=== PATIENT | female | born 1980 | race Asian ===

== ENCOUNTER 2019-05-16 12:05 | Emergency (ER) | payer OTHER ==
[~2019-05-16] VITALS: Ht 160 cm; Wt 44.5 kg
[~2019-05-16 12:05] MED LIST: CIPR-261 PO; NORG7TAB5 PO
[2019-05-16 12:45] VITALS: BP_SYST 105
--- NOTE | 2019-05-16 12:52 | NUR ---
TRIPatient triaged and placed in waiting room. VSS and patient appears in no acute distress at this time. Accompanied by self, awaiting available bed, and MD notified of need for MSE.
--- NOTE | 2019-05-16 15:07 | NUR ---
[facility] chair 4
--- NOTE | 2019-05-16 15:40 | NUR ---
PATIENT PRESENTS TO THE ER WITH BRIEF EPISODE OF BLINDNESS TO RIGHT EYE LAST NIGHT AT 2300; THIS WAS PRECEDED BY NAUSEA AND VOMITING WITH HEADACHE OVER THE PREVIOUS 5 DAYS; NO TRAUMA, NO OTHER REMARKABLE S/S; PATIENT STATES HER VISION WAS RESTORED GRADUALLY OVER THE NEXT SEVERAL HOURS
[2019-05-16] MEDS ORDERED: ACETAMINOPHEN 500 MG TABLET PO ONE (16:15)
[2019-05-16 17:43] VITALS: BP_SYST 95
--- NOTE | 2019-05-16 17:45 | NUR ---
REASSESSMENT BY ERMD; ACI GIVEN AND PATIENT INDICATED FULL UNDERSTANDING; DISCHARGED AMBULATORY WITH ; IMPROVED; VISION INTACT
== END 2019-05-16 17:45 | disposition home or self-care (01) ==
LOC: SED 12:05
DX: H53.121 Transient visual loss, right eye (principal); R51 Headache; Z88.2 Allergy status to sulfonamides
CPT/HCPCS: 70450-TC; 81025; 99284

== ENCOUNTER 2020-09-25 21:23 | Emergency (ER) | payer OTHER ==
[~2020-09-25] VITALS: Ht 160 cm; Wt 44.9 kg
[2020-09-25 21:32] VITALS: BP_SYST 134
[2020-09-25] MEDS ORDERED: NAPR-686 PO ×2 (22:58)
[2020-09-25] MEDS ORDERED: IBUPROFEN 600 MG TABLET PO ONE (23:30)
[2020-09-25] MEDS ORDERED: NAPROXEN 250 MG TABLET PO ONE (23:30)
[2020-09-25] MEDS ORDERED: IBUPROFEN 600 MG TABLET ONE (23:32)
[2020-09-25] MEDS ORDERED: predniSONE 20 MG TABLET ONE (23:35)
[2020-09-25] MEDS ORDERED: PRED20TA PO (23:41)
[2020-09-25] MEDS ORDERED: predniSONE 20 MG TABLET PO ONE (23:45)
[2020-09-25 23:53] VITALS: BP_SYST 122
== END 2020-09-25 23:53 | disposition home or self-care (01) ==
LOC: SED 21:23
DX: S90.31XA Contusion of right foot, initial encounter (principal); E03.9 Hypothyroidism, unspecified; Z88.2 Allergy status to sulfonamides; Z88.8 Allergy status to other drugs, medicaments and biological substances; Z79.899 Other long term (current) drug therapy; W23.0XXA Caught, crushed, jammed, or pinched between moving objects, initial encounter; Y93.89 Activity, other specified; Y92.89 Other specified places as the place of occurrence of the external cause; Y99.8 Other external cause status
CPT/HCPCS: 73620; 99283; J7512

== ENCOUNTER 2022-02-07 05:55 | Emergency (ER) | payer OTHER ==
[~2022-02-07] VITALS: Ht 160 cm; Wt 46.3 kg
[~2022-02-07 05:55] MED LIST changes: +PRED20TA PO
[2022-02-07 06:05] VITALS: BP_SYST 115
--- NOTE | 2022-02-07 06:07 | NUR ---
PT FROM HOME WITH C/O OF ABD CRAMPING SINCE TUESDAY AFTER TAKING SERTRALINE FOR PMDD. PT STATES SHE WOKE UP TODAY WITH VOMITING AND DIARRHEA. YESTERDAY SHE REPORTS POLYURIA. DENIES BLOOD IN THE URINE AND EMESIS. VSS. SAFETY PRECAUTIONS IN PLACE AND CONNECTED TO MONITOR.
--- NOTE | 2022-02-07 06:10 | NUR ---
Patient to ER bed 03 to gown for evaluation. Side rails up. Report given to Lexus DAWKINS.
--- NOTE | 2022-02-07 06:12 | NUR ---
Dr. Akhtar at bedside with patient for evaluation.
[2022-02-07 06:14] VITALS: BP_SYST 115
[2022-02-07] MEDS ORDERED: NACL 0.9% 1,000 ML IV ONE (06:15)
[2022-02-07] MEDS ORDERED: ONDANSETRON HCL 4 MG/2 ML VIAL IVP ONE ×2 (06:15→08:00)
--- NOTE | 2022-02-07 06:40 | NUR ---
IV ACCESS PLACED G20 LT AC IVP ZOFRAN 4 MG GIVEN AND N/S 1L BOLUS RUNNING.
--- NOTE | 2022-02-07 07:10 | NUR ---
REPORT RECEIVED FROM JUANCHO COLON. PATIENT LYING ON GURNEY IN NO ACUTE DISTRESS. FAMILY AT THE BEDSIDE. CARE TO BE PROVIDED ORDERED.
[2022-02-07] MEDS ORDERED: ALPRAZolam 0.25 MG TABLET PO ONE (07:15)
[2022-02-07 07:47] LABS: BASOPHILS # (AUTO) 0.1 K/uL (0.0-0.2); BASOPHILS % (AUTO) 0.6 % (0.0-2.0); EOSINOPHILS # (AUTO) 0.1 K/uL (0.0-0.4); EOSINOPHILS % (AUTO) 0.8 % (0.0-4.0); HEMATOCRIT 36.6 % (36-48); HEMOGLOBIN 12.6 g/dL (12.0-16.0); LYMPHOCYTES # (AUTO) 1.9 K/uL (1.0-5.5); LYMPHOCYTES % (AUTO) 20.5 % (20.5-51.5); MEAN CORPUSCULAR HEMOGLOBIN 30 pg (27-31); MEAN CORPUSCULAR HGB CONC 35 % (32-36); MEAN CORPUSCULAR VOLUME 86 fL (79.0-98.0); MONOCYTES # (AUTO) 0.6 K/uL (0.0-1.0); MONOCYTES % (AUTO) 6.1 % (1.7-9.3); NEUTROPHILS # (AUTO) 6.6 K/uL (1.8-7.7); PLATELET COUNT (AUTO) 206 K/uL (130-430); RED BLOOD CELL COUNT(AUTO) 4.27 MIL/uL (4.2-6.2); RED CELL DISTRIBUTION WIDTH 13.3 % (9.0-15.0); WHITE BLOOD COUNT (AUTO) 9.2 K/uL (4.8-10.8)
[2022-02-07 08:06] LABS: ANION GAP 12 (5-15); CHLORIDE 105 mmol/L (98-107); CREATININE 0.82 mg/dL (0.55-1.30); GLUCOSE 98 mg/dL (70-99); UREA NITROGEN, BLOOD 11 mg/dL (8-21)
[2022-02-07 08:10] LABS: ALANINE AMINOTRANSFERASE 14 U/L (12-78); ALBUMIN 3.5 g/dL (3.4-4.8); AMYLASE 59 U/L (0-100); ASPARTATE AMINOTRANSFERASE 14 U/L (10-37); LACTATE DEHYDROGENASE 122 U/L (81-234); LIPASE 119 U/L (73-393); TOTAL BILIRUBIN 0.4 mg/dL (0.0-1.0)
[2022-02-07 08:19] LABS: C-REACTIVE PROTEIN QUANT < 0.2 mg/dL (0-0.5); GFR AFRICAN AMERICAN 99 mL/min (>90)
[2022-02-07 08:52] LABS: ACETONE, SERUM NEGATIVE (NEGATIVE)
[2022-02-07] MEDS ORDERED: ALPR0.5T PO (09:34)
[2022-02-07] MEDS ORDERED: ONDA-8 TL (09:34)
--- NOTE | 2022-02-07 09:55 | NUR ---
Patient given written and verbal discharge instructions and verbalizes understanding. ER DR. ISIDRA PRICE discussed with patient the results and treatment provided. Patient in stable condition. ID arm band removed. IV catheter removed intact and dressing applied, no active bleeding. Rx oF XANAX AND ZOFRAN given. Patient educated on pain management and to follow up with PMD. Pain Scale 0/10. Opportunity for questions provided and answered. Medication side effect fact sheet provided.
[2022-02-07 10:32] LABS: BILIRUBIN,URINE NEGATIVE (NEGATIVE); BLOOD, URINE NEGATIVE (NEGATIVE); CLARITY/URINE SL CLOUDY (CLEAR); COLOR,URINE YELLOW (YELLOW); GLUCOSE,URINE NEGATIVE (NEGATIVE); KETONES,URINE 1+ (NEGATIVE); LEUKOCYTE ESTERASE ,URINE NEGATIVE (NEGATIVE); NITRITE, URINE NEGATIVE (NEGATIVE); PH,URINE 7.5 (5.0-8.0); PROTEIN URINE NEGATIVE (NEGATIVE); UROBILINOGEN,URINE 0.2 (0.2-1.0)
== END 2022-02-07 09:55 | disposition home or self-care (01) ==
LOC: SED 05:55
DX: R10.84 Generalized abdominal pain (principal); T43.225A Adverse effect of selective serotonin reuptake inhibitors, initial encounter; R19.7 Diarrhea, unspecified; R11.10 Vomiting, unspecified; Z88.2 Allergy status to sulfonamides; Z79.899 Other long term (current) drug therapy
CPT/HCPCS: 99284; 74176; 96374; 96361; 80053; 82009; 82150; 84703; 83615; 83690; 85025; 86140; 36415; 76376; 96376; 81025; 83605; 81003; J2405; J7030

== ENCOUNTER 2022-03-01 15:24 | Emergency (ER) | payer OTHER ==
[~2022-03-01] VITALS: Ht 160 cm; Wt 43.1 kg
[~2022-03-01 15:24] MED LIST changes: +ALPR0.5T PO; +ONDA-8 TL
--- NOTE | 2022-03-01 16:35 | NUR ---
Patient arrived to ED 4. Was at hospital three weeks ago but was on zoloft. Patient said that she was on pre-menstrual syndrome. Patient discharged after that. Patient had three doses of zoloft and started having diarrhea. Patient was told by other ER Dr. about potential side effects of serotonin syndrome. Patient having headaches and went to primary care DrArden today. Patient was told to come to ER to get checked out. Dr. Jones at bedside to MSE patient.
[2022-03-01 16:38] VITALS: BP_SYST 106
[2022-03-01] MEDS ORDERED: NACL 0.9% 1,000 ML IV ONE (16:45)
[2022-03-01] MEDS ORDERED: ONDANSETRON HCL 4 MG/2 ML VIAL IVP ONE (16:45)
[2022-03-01 17:54] LABS: BASOPHILS # (AUTO) 0.1 K/uL (0.0-0.2); BASOPHILS % (AUTO) 1.5 % (0.0-2.0); EOSINOPHILS # (AUTO) 0.1 K/uL (0.0-0.4); EOSINOPHILS % (AUTO) 1.2 % (0.0-4.0); HEMATOCRIT 38.8 % (36-48); HEMOGLOBIN 13.1 g/dL (12.0-16.0); LYMPHOCYTES # (AUTO) 2.6 K/uL (1.0-5.5); LYMPHOCYTES % (AUTO) 32.8 % (20.5-51.5); MEAN CORPUSCULAR HEMOGLOBIN 29 pg (27-31); MEAN CORPUSCULAR HGB CONC 34 % (32-36); MEAN CORPUSCULAR VOLUME 87 fL (79.0-98.0); MONOCYTES # (AUTO) 0.6 K/uL (0.0-1.0); MONOCYTES % (AUTO) 8.1 % (1.7-9.3); NEUTROPHILS # (AUTO) 4.4 K/uL (1.8-7.7); NEUTROPHILS % (AUTO) 56.4 % (40.0-70.0); PLATELET COUNT (AUTO) 243 K/uL (130-430); RED BLOOD CELL COUNT(AUTO) 4.45 MIL/uL (4.2-6.2); RED CELL DISTRIBUTION WIDTH 14.1 % (9.0-15.0); WHITE BLOOD COUNT (AUTO) 7.8 K/uL (4.8-10.8)
[2022-03-01 17:59] LABS: CALCIUM 9.1 mg/dL (8.4-11.0); CREATININE 0.82 mg/dL (0.55-1.30)
--- NOTE | 2022-03-01 18:00 | NUR ---
ER at bedside examining patient.
--- NOTE | 2022-03-01 18:01 | NUR ---
IV started on right AC 22 G C/D/I fluids and meds given.
[2022-03-01 18:05] LABS: ALBUMIN 3.9 g/dL (3.4-4.8); TOTAL BILIRUBIN 0.3 mg/dL (0.0-1.0)
--- NOTE | 2022-03-01 18:15 | NUR ---
PT is in bed rails up bed down, pt has no complaints requesting list of lab values.
[2022-03-01] MEDS ORDERED: LOPE2CAP PO (18:21)
[2022-03-01] MEDS ORDERED: SUCR1TAB2 PO (18:21)
[2022-03-01] MEDS ORDERED: ONDA-8 TL (18:21)
--- NOTE | 2022-03-01 19:12 | NUR ---
Patient given written and verbal discharge instructions and verbalizes understanding. ER MD discussed with patient the results and treatment provided. Patient in stable condition. ID arm band removed. IV catheter removed intact and dressing applied, no active bleeding. Rx of CARAFATE IMODIUM ZOFRAN AND BENTYL given. Patient educated on pain management and to follow up with PMD. Opportunity for questions provided and answered. Medication side effect fact sheet provided.
== END 2022-03-01 19:00 | disposition home or self-care (01) ==
LOC: SED 15:24
DX: R19.7 Diarrhea, unspecified (principal); R11.2 Nausea with vomiting, unspecified; R10.9 Unspecified abdominal pain; E03.9 Hypothyroidism, unspecified; Z88.2 Allergy status to sulfonamides; Z88.8 Allergy status to other drugs, medicaments and biological substances; Z79.899 Other long term (current) drug therapy
CPT/HCPCS: 99284; 74176; 96374; 96361; 80053; 85025; 36415; 76376; 81025; J2405; J7030

== ENCOUNTER 2022-08-12 09:28 | Outpatient (CLI) | payer OTHER ==
[~2022-08-12 09:28] MED LIST changes: +LOPE2CAP PO; +SUCR1TAB2 PO
== END 2022-08-12 19:26 | disposition home or self-care (01) ==
LOC: SNM 09:28
PROVIDERS: ATTEND Internal Medicine
DX: R19.7 Diarrhea, unspecified (principal); R11.0 Nausea
CPT/HCPCS: 78264; A9541

== ENCOUNTER 2022-09-19 20:07 | Emergency (ER) | payer OTHER ==
[~2022-09-19] VITALS: Ht 160 cm; Wt 44.9 kg
[2022-09-19 20:11] VITALS: BP_SYST 154
--- NOTE | 2022-09-19 20:17 | NUR ---
Patient to ER bed 06 to gown for evaluation. Side rails up. Report given to JUANCHO DALEY.
--- NOTE | 2022-09-19 20:18 | NUR ---
Dr. Jang at bedside examining the patient.
[2022-09-19] MEDS ORDERED: EPINEPHRINE HCL/PF 1 MG/ML AMP ONE (20:27)
[2022-09-19] MEDS ORDERED: NACL 0.9% 1,000 ML IV ONE (20:30)
[2022-09-19] MEDS ORDERED: FAMOTIDINE PF 20 MG/2 ML VIAL IVP ONE (20:30)
[2022-09-19] MEDS ORDERED: METHYLPREDNISOLONE SOD SUCC 40 MG/ML VIAL IVP ONE (20:30)
[2022-09-19] MEDS ORDERED: EPINEPHrine HCL 1 MG/ML VIAL IM ONE (20:30)
[2022-09-19] MEDS ORDERED: DIPHENHYDRAMINE INJ 50 MG/ML VIAL IVP ONE (20:30)
[2022-09-19] MEDS ORDERED: DEC4 PO (22:22)
[2022-09-19] MEDS ORDERED: DIPH25CA83 PO (22:22)
[2022-09-19] MEDS ORDERED: EPIN0.3P3 IM (22:22)
[2022-09-19 23:14] VITALS: BP_SYST 107
--- NOTE | 2022-09-19 23:15 | NUR ---
Patient given written and verbal discharge instructions and verbalizes understanding. ER MD discussed with patient the results and treatment provided. Patient in stable condition. ID arm band removed. IV catheter removed intact and dressing applied, no active bleeding. Rx of EPIPEN, BENADRYL AND DEXAMETHASONE given. Patient educated on pain management and to follow up with PMD. Pain Scale 0/10. Opportunity for questions provided and answered. Medication side effect fact sheet provided.
== END 2022-09-19 23:14 | disposition home or self-care (01) ==
LOC: SED 20:07
DX: T88.6XXA Anaphylactic reaction due to adverse effect of correct drug or medicament properly administered, initial encounter (principal); T37.8X5A Adverse effect of other specified systemic anti-infectives and antiparasitics, initial encounter; Z88.2 Allergy status to sulfonamides; Z88.8 Allergy status to other drugs, medicaments and biological substances; Z79.899 Other long term (current) drug therapy; Y92.89 Other specified places as the place of occurrence of the external cause
CPT/HCPCS: 99284; 96374; 96375; 96361; 96372; J1200; J0171; J3490; J7030; J1030

== ENCOUNTER 2022-09-20 08:03 | Emergency (ER) | payer OTHER ==
[~2022-09-20] VITALS: Ht 160 cm; Wt 44.9 kg
[~2022-09-20 08:03] MED LIST changes: +DEC4 PO; +DIPH25CA83 PO; +EPIN0.3P3 IM
[2022-09-20 08:30] VITALS: BP_SYST 112
--- NOTE | 2022-09-20 08:40 | NUR ---
PT TRIAGED, PT PLACED ON BED 4, REPORT GIVEN TO RN, JULIETA.
[2022-09-20] MEDS ORDERED: FAMOTIDINE 20 MG TABLET PO ONE (08:45)
[2022-09-20] MEDS ORDERED: predniSONE 20 MG TABLET PO ONE (08:45)
[2022-09-20] MEDS ORDERED: EPINEPHRINE HCL/PF 1 MG/ML AMP SUBCUT ONE (08:45)
--- NOTE | 2022-09-20 08:46 | NUR ---
PT BIB SELF WITH AUNT AT BEDSIDE. C/O ALLERGIC REACTION TO UNKNOWN ALLERGIEN. PT WAS HERE ON 09/19/22 FOR AN ALLERGIC REACTION. PT STATES THAT "IT WAS OKAY LAST NIGHT BUT WHEN I WOKE UP THIS MORNING IT WAS WORST AND STARTED TO ITCH AGAIN" "THEY TOLD ME IF THIS HAPPENS AGAIN TO COME IN " PT HAS A KNOWN ADVERSE REACTION TO SULFA BUT DENIES COMING INTO CONTACT WITH IT. PT IS GCS 15 EYES OPEN SPONTANEOUSLY. PT IS ORIENTED TO PERSON, PLACE, TIME, AND SITUATION. PT OBEYS COMMANDS. PT DENIES VISUAL OR AUDITORY ISSUES. PT DENIES SOB AND CHEST PAIN AT THIS TIME. PT DOES STATES SHE HAD A EPISODE OF DYSPNEA IN THE [employer]. PT DENIES ABDOMINAL PAIN. PT DENIES URINARY OR BOWEL ISSUES AT THIS TIME. PULSES WITHIN NORMAL LIMITS. NO ANGIOEDEMA NOTED AT THIS TIME OR NASAL FLARING. NO USE OF ACCESSORY MUSCLES NOTED ON ASSESSMENT. PT HAS A HISTORY OF HYPOTHYROIDISM, PMDD, GASTRITIS AND NARCOLEPSY. PT IN ROOM 4 ON THE MONITOR WITH AUNT AT BEDSIDE PLAN OF CARE CONTINUES.
--- NOTE | 2022-09-20 08:50 | NUR ---
ER at bedside examining patient.
--- NOTE | 2022-09-20 09:32 | NUR ---
MD returned now to bedside for re evaluation of patient.
[2022-09-20] MEDS ORDERED: DIPHENHYDRAMINE INJ 50 MG/ML VIAL IM ONE (09:45)
--- NOTE | 2022-09-20 09:46 | NUR ---
PT STILL COMPLAINING OF RASH AND PRURITUS DR. MINER MADE AWARE NEW ORDERS FOR 75 MG DIPHENHYDRAMINE IM.
[2022-09-20 10:05] LABS: BILIRUBIN,URINE NEGATIVE (NEGATIVE); BLOOD, URINE NEGATIVE (NEGATIVE); CLARITY/URINE CLEAR (CLEAR); COLOR,URINE YELLOW (YELLOW); GLUCOSE,URINE TRACE (NEGATIVE); KETONES,URINE NEGATIVE (NEGATIVE); LEUKOCYTE ESTERASE ,URINE NEGATIVE (NEGATIVE); NITRITE, URINE NEGATIVE (NEGATIVE); PROTEIN URINE NEGATIVE (NEGATIVE); UROBILINOGEN,URINE 0.2 (0.2-1.0)
[2022-09-20 11:15] VITALS: BP_SYST 97
--- NOTE | 2022-09-20 11:17 | NUR ---
Patient given written and verbal discharge instructions and verbalizes understanding. ER MD discussed with patient the results and treatment provided. Patient in stable condition. ID arm band removed. Patient educated on allergic reaction management and to follow up with PMD. Pain Scale 0 out of 10. Opportunity for questions provided and answered. Medication side effect fact sheet provided.
--- NOTE | 2022-09-20 11:42 | NUR ---
Patient states she feels better at discharge and patient has had all questions answered.
== END 2022-09-20 11:42 | disposition home or self-care (01) ==
LOC: SED 08:03
DX: L50.9 Urticaria, unspecified (principal); E03.9 Hypothyroidism, unspecified; Z88.2 Allergy status to sulfonamides; Z88.8 Allergy status to other drugs, medicaments and biological substances; Z79.899 Other long term (current) drug therapy
CPT/HCPCS: 99285; 81025; 96372; 81003; J1200; J0171